=== PATIENT | male | born 1950 | race Caucasian/White ===

== ENCOUNTER → 2019-12-31 | Outpatient (CLI) | payer MEDICARE | END | disposition home or self-care (01) | LOC: SHCH 15:07 | PROVIDERS: ATTEND Internal Medicine Cardiovascular Disease | DX: I71.2 Thoracic aortic aneurysm, without rupture (principal) | CPT/HCPCS: 93306 ==

== ENCOUNTER → 2021-08-02 | Outpatient (CLI) | payer MEDICARE | END | disposition home or self-care (01) | LOC: LAB 14:15 | PROVIDERS: ATTEND Internal Medicine Cardiovascular Disease | DX: I71.9 Aortic aneurysm of unspecified site, without rupture (principal) | CPT/HCPCS: 36415; 82565; 84520 ==

== ENCOUNTER → 2022-03-29 | Outpatient (CLI) | payer MEDICARE ==
[2022-03-29 14:46] LABS: CREATININE 1.1 mg/dL (0.5-1.5); POTASSIUM 4.5 mmol/L (3.5-5.1); TOTAL PROTEIN, SERUM 6.9 g/dL (6.0-8.3)
== END | disposition home or self-care (01) ==
LOC: LAB 13:35
PROVIDERS: ATTEND Internal Medicine Cardiovascular Disease
DX: I10 Essential (primary) hypertension (principal); I71.9 Aortic aneurysm of unspecified site, without rupture
CPT/HCPCS: 36415; 80053

== ENCOUNTER → 2022-04-02 | Outpatient (CLI) | payer MEDICARE ==
[~2022-04-02] MED LIST: IOHEXOL 350 MG/ML 100ML INFUS..BTL IV ONE
== END | disposition home or self-care (01) ==
LOC: RAH 07:52
PROVIDERS: ATTEND Internal Medicine Cardiovascular Disease
DX: J44.9 Chronic obstructive pulmonary disease, unspecified (principal); I71.9 Aortic aneurysm of unspecified site, without rupture; I71.21 Aneurysm of the ascending aorta, without rupture
CPT/HCPCS: 71275; Q9967

== ENCOUNTER 2022-05-16 08:26 | Day surgery (SDC) | payer MEDICARE ==
[2022-05-15 09:16] LABS: BASOPHILS % (AUTO) 0.3 % (0.0-5.0); EOSINOPHILS % (AUTO) 0.2 % (0.0-8.0); HEMATOCRIT 43.8 % (42-54); LYMPHOCYTES % (AUTO) 17.3 % (21.0-51.0); MEAN CORPUSCULAR HEMOGLOBIN 28.8 pg (27.0-33.0); MEAN CORPUSCULAR HGB CONC 32.4 g/dL (32.0-36.0); MEAN CORPUSCULAR VOLUME 88.8 fL (79-99); MONOCYTES % (AUTO) 8.3 % (3.0-13.0); NEUTROPHILS % (AUTO) 73.7 % (40.0-77.0); PLATELET COUNT (AUTO) 188 K/uL (130-400); RED BLOOD CELL COUNT(AUTO) 4.93 MIL/uL (4.50-6.20); RED CELL DISTRIBUTION WIDTH 13.5 % (11.0-15.5)
[2022-05-15 09:25] LABS: CREATININE 1.1 mg/dL (0.5-1.5); POTASSIUM 4.4 mmol/L (3.5-5.1)
[2022-05-15 09:28] LABS: INR 1.01 (0.85-1.15)
[2022-05-15 09:29] LABS: PARTIAL THROMBOPLASTIN TIME 27.9 SEC (26.3-35.5)
[2022-05-15 09:32] VITALS: BP 139/95
[2022-05-15 09:38] LABS: B-TYPE NATRIURETIC PEPTIDE 18 pg/mL (0-100)
[2022-05-16] VITALS (11 sets, daily range): BP systolic 105–166; BP diastolic 71–113
[~2022-05-16] VITALS: Ht 177.8 cm; Wt 89.6 kg
[~2022-05-16 08:26] MED LIST changes: +BACL10TA PO; +CLOT15CR5 TP; +CRANBERRY PO; +EZET10TA48 PO; +FLUT15.845 NS; +GARLIC PO; -IOHEXOL 350 MG/ML 100ML INFUS..BTL IV ONE; +LEVO137C4 PO; +LORA-997 PO; +LOSA25TA41 PO; +PROBIOTIC PO; +VITAMIN D3 PO; +[UNRECOGNIZED DRUG - OTHER] IM; +[UNRECOGNIZED DRUG - OTHER] PO
[2022-05-16] MEDS ORDERED: 0.9%NACL 1000ML 1,000 ML IV ONE (09:11)
[2022-05-16] MEDS ORDERED: MONT-39 PO (09:19)
[2022-05-16] MEDS ORDERED: FISH1CAP27 PO (09:19)
[2022-05-16] MEDS ORDERED: CYAN10007 IJ (09:19)
[2022-05-16] MEDS ORDERED: CAL/MAG/ZINC PO (09:21)
[2022-05-16] MEDS ORDERED: NITROGLYCERIN 50MG VIAL ONE (09:59)
[2022-05-16] MEDS ORDERED: NICARDIPINE 25MG INJ IV ONE (09:59)
[2022-05-16] MEDS ORDERED: HEPARIN 10,000 UNIT/10ML (1,000 UNIT/ML) VIAL ONE (09:59)
[2022-05-16] MEDS ORDERED: MIDAZOLAM HCL 1 MG/ML 2ML VIAL ONE (09:59)
[2022-05-16] MEDS ORDERED: IODIXANOL 320 MG/ML 100 ML VIAL ONE ×2 (09:59→12:09)
[2022-05-16] MEDS ORDERED: FENTANYL CITRATE PF 50 MCG/1 ML 2ML VIAL ONE (10:00)
[2022-05-16] MEDS ORDERED: LIDOCAINE HCL 400MG/20ML VIAL ONE (10:00)
[2022-05-16] MEDS ORDERED: IOHEXOL-350 50ML VIAL IV ONE (12:08)
[2022-05-16] MEDS ORDERED: HYDRALAZINE 20MG/ML VIAL ONE ×2 (12:27→12:49)
[2022-05-16] MEDS ORDERED: 0.9%NACL 1000ML 1,000 ML IV SCH (13:30)
[2022-05-16] MEDS ORDERED: DEXTROSE 50%-WATER 50 ML DISP.SYRIN IV PRN (13:30)
[2022-05-16] MEDS ORDERED: GLUCAGON 1MG KIT 1 MG ML IM PRN (13:30)
== END 2022-05-16 17:00 | disposition home or self-care (01) ==
LOC: DAH 08:26
PROVIDERS: ATTEND Internal Medicine Cardiovascular Disease
DX: I71.21 Aneurysm of the ascending aorta, without rupture (principal); I25.10 Atherosclerotic heart disease of native coronary artery without angina pectoris; I10 Essential (primary) hypertension; E78.5 Hyperlipidemia, unspecified; E03.9 Hypothyroidism, unspecified; N52.1 Erectile dysfunction due to diseases classified elsewhere; Z79.899 Other long term (current) drug therapy; Z79.01 Long term (current) use of anticoagulants; Z83.3 Family history of diabetes mellitus
CPT/HCPCS: 80048; 83880; 85025; 85610; 85730; 36415; 71045; 93005; 93454; 85347; C1769 ×3; C1894 ×2; C1760; C1893; C1887 ×2; J3010; J3490 ×3; J7030; J0360 ×2; J1644 ×3; J2250; Q9967 ×2; A4215; A4222; A4221; A4663; A4216; A4606; A4223 ×3; 99156; 99157

== ENCOUNTER → 2022-06-06 | Outpatient (CLI) | payer MEDICARE ==
[~2022-06-06] MED LIST changes: +CAL/MAG/ZINC PO; +CYAN10007 IJ; +FISH1CAP27 PO; -LORA-997 PO; +MONT-39 PO; -[UNRECOGNIZED DRUG - OTHER] IM
== END | disposition home or self-care (01) ==
LOC: SHCH 09:44
PROVIDERS: ATTEND Internal Medicine Cardiovascular Disease
DX: I11.9 Hypertensive heart disease without heart failure (principal); I25.10 Atherosclerotic heart disease of native coronary artery without angina pectoris; I10 Essential (primary) hypertension; I71.21 Aneurysm of the ascending aorta, without rupture; E78.5 Hyperlipidemia, unspecified; I08.1 Rheumatic disorders of both mitral and tricuspid valves
CPT/HCPCS: 93306

== ENCOUNTER 2022-07-18 16:06 | Inpatient (IN) | payer MEDICARE ==
[~2022-07-18] VITALS: Ht 177.8 cm; Wt 82.0 kg
[2022-07-18 00:27] VITALS: BP 107/75
[2022-07-18 16:36] LABS: BASOPHILS % (AUTO) 0.3 % (0.0-5.0); HEMATOCRIT 37.6 % (42-54); LYMPHOCYTES % (AUTO) 11.2 % (21.0-51.0); MEAN CORPUSCULAR HEMOGLOBIN 27.1 pg (27.0-33.0); MEAN CORPUSCULAR HGB CONC 30.6 g/dL (32.0-36.0); MEAN CORPUSCULAR VOLUME 88.5 fL (79-99); MONOCYTES % (AUTO) 7.8 % (3.0-13.0); NEUTROPHILS % (AUTO) 79.8 % (40.0-77.0); PLATELET COUNT (AUTO) 404 K/uL (130-400); RED BLOOD CELL COUNT(AUTO) 4.25 MIL/uL (4.50-6.20); RED CELL DISTRIBUTION WIDTH 15.3 % (11.0-15.5); WHITE BLOOD COUNT (AUTO) 10.3 K/uL (4.8-10.8)
[2022-07-18] MEDS ORDERED: METOPROLOL TARTRATE 1 MG/ML 5ML VIAL IV ONE ×2 (16:42→17:00)
[2022-07-18 16:47] LABS: INR 1.02 (0.85-1.15); PROTHROMBIN TIME 11.1 SEC (9.6-11.6)
[2022-07-18 16:51] LABS: ALBUMIN 3.7 g/dL (3.5-5.0); TOTAL PROTEIN, SERUM 6.6 g/dL (6.0-8.3)
[2022-07-18 16:58] LABS: B-TYPE NATRIURETIC PEPTIDE 453 pg/mL (0-100)
[2022-07-18 17:15] LABS: POTASSIUM 5.1 mmol/L (3.5-5.1)
[2022-07-18 17:26] LABS: CREATININE 1.4 mg/dL (0.5-1.5)
[2022-07-18] MEDS: METOPROLOL TARTRATE 50 MG TAB PO ONE ×2 (17:45→17:48)
[2022-07-18] MEDS ORDERED: ACETAMINOPHEN 325 MG TAB PO PRN (18:30)
[2022-07-18] MEDS ORDERED: MAGNESIUM 2GM PREMIX 50ML 50 ML IV SCH (18:30)
[2022-07-18] MEDS ORDERED: 0.9%NACL 1000ML 1,000 ML IV SCH (18:30)
[2022-07-18] MEDS ORDERED: ONDANSETRON 4MG INJ IVP PRN (18:30)
[2022-07-18] MEDS ORDERED: ALBUTEROL 0.083% 2.5 MG/3 ML INH IH PRN (18:30)
[2022-07-18] MEDS: FUROSEMIDE 20MG VIAL IV SCH (18:46)
[2022-07-18 18:51] LABS: MAGNESIUM 2.3 mg/dL (1.80-2.40); THYROID STIMULATING HORMONE 16.24 uIU/mL (0.36-3.74)
[2022-07-18] MEDS ORDERED: AMIODARONE 150MG VIAL ONE (20:46)
[2022-07-18] MEDS: AMIODARONE 150MG VIAL 150 MG in DEXTROSE 5%-WATER 100 ML IV SCH ×2 (20:54→21:18)
[2022-07-18] MEDS ORDERED: AMIODARONE 360MG/200ML D5W(1MG/MIN) IV SCH ×2 (21:30)
[2022-07-18 22:46] VITALS: BP 121/89
[2022-07-19] MEDS ORDERED: AMIODARONE 150MG VIAL ONE (01:40)
[2022-07-19] MEDS ORDERED: AMIODARONE 150MG VIAL 150 MG in DEXTROSE 5%-WATER 100 ML IV SCH (01:41)
[2022-07-19] MEDS: METOPROLOL TARTRATE 25 MG TAB PO SCH ×4 (02:00→20:51)
[2022-07-19 02:07] VITALS: BP 117/76
[2022-07-19 03:30] VITALS: BP 115/78
[2022-07-19] MEDS ORDERED: AMIODARONE 540 MG/D5W 300ML (0.5MG/MIN) IV SCH ×2 (03:35)
[2022-07-19 04:16] LABS: CREATININE 1.4 mg/dL (0.5-1.5); MAGNESIUM 2.4 mg/dL (1.80-2.40); POTASSIUM 4.7 mmol/L (3.5-5.1)
[2022-07-19] MEDS: FUROSEMIDE 20MG VIAL IV SCH ×2 (06:12→18:30)
[2022-07-19] MEDS ORDERED: LEVOTHYROXINE 125 MCG TABLET PO SCH (06:30)
[2022-07-19 06:53] VITALS: BP 125/87
[2022-07-19] MEDS ORDERED: AMIO200T68 PO (08:16)
[2022-07-19] MEDS ORDERED: POTA-202 PO (08:16)
[2022-07-19] MEDS ORDERED: TRAM50TA4 PO (08:16)
[2022-07-19] MEDS ORDERED: METO25TA6 PO (08:16)
[2022-07-19] MEDS ORDERED: FURO20TA4 PO (08:16)
[2022-07-19] MEDS: AMIODARONE 200 MG TABLET PO SCH (09:00)
[2022-07-19] MEDS: RIVAROXABAN 20 MG TABLET PO SCH (09:14)
[2022-07-19] MEDS: ASPIRIN 81MG CHEW TAB PO SCH (09:15)
[2022-07-19] MEDS: EZETIMIBE 10 MG TAB PO SCH (09:15)
[2022-07-19 12:00] VITALS: BP 131/86
[2022-07-19] MEDS ORDERED: MAGNESIUM 2GM PREMIX 50ML 50 ML IV PRN (16:00)
[2022-07-19] MEDS ORDERED: LIDOCAINE HCL-MPF 1% 2ML VIAL IV PRN ×2 (16:00)
[2022-07-19] MEDS ORDERED: GLUCAGON 1MG KIT 1 MG ML IM PRN (16:00)
[2022-07-19] MEDS ORDERED: POTASSIUM CHLORIDE 10% ELIXIR 20 MEQ/15 ML UDCUP PO PRN (16:00)
[2022-07-19] MEDS ORDERED: KCL 20 MEQ ERTAB PO PRN (16:00)
[2022-07-19] MEDS ORDERED: POTASSIUM CHLORIDE 20MEQ/100ML 100 ML IV PRN ×2 (16:00)
[2022-07-19] MEDS ORDERED: FUROSEMIDE 20MG VIAL IV SCH (16:00)
[2022-07-19] MEDS ORDERED: DEXTROSE 50%-WATER 50 ML DISP.SYRIN IV PRN (16:00)
[2022-07-19 16:25] VITALS: BP 125/88
[2022-07-19 19:45] VITALS: BP 134/84
[2022-07-19] MEDS: LACTOBACILLUS RHAMNOSUS GG 1 EACH CAP.SPRINK PO SCH (20:51)
[2022-07-19] MEDS: FLUTICASONE PROPIONATE 50MCG/SPRAY 16 GM BOTTLE EN SCH (20:52)
[2022-07-19] MEDS ORDERED: MONTELUKAST SODIUM 10 MG TAB PO SCH (21:00)
[2022-07-19] MEDS ORDERED: FISH OIL 1000 MG/CAP PO SCH (21:00)
[2022-07-19] MEDS ORDERED: EZETIMIBE 10 MG TAB PO SCH (21:00)
[2022-07-20 01:03] VITALS: BP 118/78
[2022-07-20 03:49] VITALS: BP 125/79
[2022-07-20 04:11] LABS: HEMATOCRIT 34.8 % (42-54); MEAN CORPUSCULAR HGB CONC 30.5 g/dL (32.0-36.0); MEAN CORPUSCULAR VOLUME 88.8 fL (79-99); RED BLOOD CELL COUNT(AUTO) 3.92 MIL/uL (4.50-6.20); RED CELL DISTRIBUTION WIDTH 15.3 % (11.0-15.5); WHITE BLOOD COUNT (AUTO) 10.5 K/uL (4.8-10.8)
[2022-07-20 04:25] LABS: CREATININE 1.2 mg/dL (0.5-1.5); MAGNESIUM 2.4 mg/dL (1.80-2.40)
[2022-07-20] MEDS: LEVOTHYROXINE 112 MCG TABLET PO SCH ×2 (05:44→05:52)
[2022-07-20] MEDS: LEVOTHYROXINE 25 MCG TABLET PO SCH ×2 (05:44→05:52)
[2022-07-20] MEDS: FUROSEMIDE 20MG VIAL IV SCH (05:45)
[2022-07-20 08:29] VITALS: BP 127/90
[2022-07-20] MEDS: FLUTICASONE PROPIONATE 50MCG/SPRAY 16 GM BOTTLE EN SCH (08:50)
[2022-07-20] MEDS: RIVAROXABAN 20 MG TABLET PO SCH (08:56)
[2022-07-20] MEDS: EZETIMIBE 10 MG TAB PO SCH (08:57)
[2022-07-20] MEDS: AMIODARONE 200 MG TABLET PO SCH (08:57)
[2022-07-20] MEDS: ASPIRIN 81MG CHEW TAB PO SCH (08:57)
[2022-07-20] MEDS: LACTOBACILLUS RHAMNOSUS GG 1 EACH CAP.SPRINK PO SCH (08:57)
[2022-07-20] MEDS: METOPROLOL TARTRATE 25 MG TAB PO SCH (08:58)
[2022-07-20] MEDS ORDERED: LOSARTAN 25 MG TABLET PO SCH (09:00)
[2022-07-20] MEDS ORDERED: MULTIVITAMIN TABLET PO SCH (09:00)
[2022-07-20] MEDS ORDERED: VITAMIN D3 50 MCG PO SCH (09:00)
[2022-07-20] MEDS ORDERED: CRANBERRY PO SCH (09:00)
[2022-07-20] MEDS ORDERED: GARLIC PO SCH (09:00)
[2022-07-20 12:07] VITALS: BP 101/66
[2022-07-20] MEDS ORDERED: FURO20TA4 PO (16:06)
[2022-07-20] MEDS ORDERED: ASCO1500 PO (16:07)
[2022-07-20 16:49] VITALS: BP 111/78
[2022-07-20] MEDS ORDERED: FUROSEMIDE 20 MG TABLET PO SCH (17:00)
[2022-07-20] MEDS ORDERED: METO50TA9 PO (17:16)
[2022-07-20] MEDS ORDERED: ASCORBIC ACID 500 MG TAB PO SCH (21:00)
[2022-08-18] MEDS ORDERED: CYANOCOBALAMIN (VITAMIN B-12) 1000 MCG/ML 1ML VIAL SQ SCH (09:00)
== END 2022-07-20 17:15 | disposition home or self-care (01) | DRG 309 ==
LOC: EDH 16:06 → EDHIP 18:09 → OBSVTOIN 18:09 → 2AH 22:09
PROVIDERS: ADMIT Internal Medicine Critical Care Medicine; ATTEND Internal Medicine Critical Care Medicine
DX: I48.0 Paroxysmal atrial fibrillation (principal); I25.810 Atherosclerosis of coronary artery bypass graft(s) without angina pectoris; J81.1 Chronic pulmonary edema; E03.9 Hypothyroidism, unspecified; E78.00 Pure hypercholesterolemia, unspecified; I48.92 Unspecified atrial flutter; Z79.01 Long term (current) use of anticoagulants; Z83.3 Family history of diabetes mellitus; Z95.1 Presence of aortocoronary bypass graft; Z86.73 Personal history of transient ischemic attack (TIA), and cerebral infarction without residual deficits; Z87.891 Personal history of nicotine dependence
CPT/HCPCS: 36415; 71045; 80048; 80053; 83735; 83880; 84439; 84443; 84481; 84484; 85025; 85027; 85610; 85651; 85730; 86140; 93005; 93306; 93356; 94760; 99291; G0378; J0282; J1940; J3475; J3490; J7060

== ENCOUNTER 2023-02-28 16:47 | Emergency (ER) | payer MEDICARE ==
[~2023-02-28] VITALS: Ht 177.8 cm; Wt 83.5 kg
[~2023-02-28 16:47] MED LIST changes: +AMIO200T68 PO; +ASCO1500 PO; +FURO20TA4 PO; +METO50TA9 PO; +POTA-202 PO; +TRAM50TA4 PO
[2023-02-28 17:11] LABS: BASOPHILS # (AUTO) 0.02 K/uL (0.00-0.20); BASOPHILS % (AUTO) 0.2 % (0.0-5.0); EOSINOPHILS # (AUTO) 0.02 K/uL (0.00-0.70); EOSINOPHILS % (AUTO) 0.2 % (0.0-8.0); HEMATOCRIT 36.7 % (42-54); IMMATURE GRANULOCYTE ABSOLUTE 0.04 K/uL (0-1); LYMPHOCYTES # (AUTO) 0.9 K/uL (1.0-4.8); LYMPHOCYTES % (AUTO) 10.1 % (21.0-51.0); MEAN CORPUSCULAR HGB CONC 30.5 g/dL (32.0-36.0); MEAN CORPUSCULAR VOLUME 75.4 fL (79-99); MONOCYTES # (AUTO) 0.8 K/uL (0.1-1.0); MONOCYTES % (AUTO) 8.5 % (3.0-13.0); NEUTROPHILS # (AUTO) 7.3 K/uL (1.8-7.7); NEUTROPHILS % (AUTO) 80.6 % (40.0-77.0); PLATELET COUNT (AUTO) 251 K/uL (130-400); RED BLOOD CELL COUNT(AUTO) 4.87 MIL/uL (4.50-6.20); RED CELL DISTRIBUTION WIDTH 18.5 % (11.0-15.5)
[2023-02-28 17:20] LABS: CREATININE 1.3 mg/dL (0.5-1.5)
[2023-02-28 17:33] LABS: B-TYPE NATRIURETIC PEPTIDE 206 pg/mL (0-100); BILIRUBIN,TOTAL 0.6 mg/dL (0.2-1.0); MAGNESIUM 2.1 mg/dL (1.80-2.40); TOTAL PROTEIN, SERUM 7.3 g/dL (6.0-8.3)
[2023-02-28 19:30] VITALS: BP 167/89; PULSE 59; RESP 16; O2SAT 97
== END 2023-02-28 19:35 | disposition home or self-care (01) ==
LOC: EDH 16:47
DX: I10 Essential (primary) hypertension (principal); E78.00 Pure hypercholesterolemia, unspecified; Z79.899 Other long term (current) drug therapy; Z95.1 Presence of aortocoronary bypass graft
CPT/HCPCS: 36415; 71045; 80053; 83735; 83880; 84484; 85025; 93005